=== PATIENT | female | born 1935 | race Two or more races ===

== ENCOUNTER 2018-01-13 09:58 | Outpatient (CLI) | payer OTHER ==
[~2018-01-13 09:58] MED LIST: ALPRAZOLAM0.25 MG; CARVEDILOL25 MG
== END 2018-01-13 10:30 | disposition home or self-care (01) ==
LOC: RAD 501 09:58
DX: M54.5 Low back pain (principal); M54.32 Sciatica, left side

== ENCOUNTER 2022-05-26 14:35 | Outpatient (CLI) | payer OTHER | END 2022-05-26 14:38 | disposition home or self-care (01) | LOC: RAD 14:35 | PROVIDERS: ATTEND Internal Medicine | DX: I20.9 Angina pectoris, unspecified (principal) ==

== ENCOUNTER → 2022-05-26 | Outpatient (CLI) | payer OTHER | END | disposition home or self-care (01) | LOC: NUCLEAR 13:25 | PROVIDERS: ATTEND Internal Medicine | DX: M81.0 Age-related osteoporosis without current pathological fracture (principal) ==